=== PATIENT | male | born 1965 | race Asian ===

== ENCOUNTER 2016-09-23 08:40 | Emergency (ER) | payer OTHER ==
[~2016-09-23] VITALS: Ht 177.8 cm; Wt 83.9 kg
--- NOTE | 2016-09-23 09:09 | Emergency Room Report ---
History of Present Illness General Chief Complaint: Multiple Trauma/Fall Source: Patient Present Illness HPI Patient is a 51-year-old male who presented after a fall. The patient reported fell down 4 stairs he denied loss of consciousness. He reports having a moderate headache. He sustained injuries to his for head as well as to his lower lip and left wrist and left knee. He denied any neck pain or stiffness. He denied any low back pain or chest pain. The patient said he fell forward. He denies taking anticoagulants. Allergies: Coded Allergies: NSAIDS (NON-STEROIDAL ANTI-INFLAMMA (Verified Allergy, Unknown, 09/23/16) Uncoded Allergies: NSAIDS (Allergy, Unknown, 09/23/16) Patient History Past Medical History: see triage record Reviewed Nursing Documentation: PMH: Agreed, PSxH: Agreed Nursing Documentation-PMH Past Medical History: No Stated History Review of Systems All Other Systems: negative except mentioned in HPI Physical Exam Vital Signs Date Time Temp Pulse Resp B/P Pulse Ox O2 Delivery O2 Flow Rate FiO2 09/23/16 08:50 98.2 97 18 148/107 95 Room Air Sp02 EP Interpretation: reviewed, normal General Appearance: normal inspection, well appearing, no apparent distress, alert, GCS 15 Head: atraumatic ENT: normal ENT inspection, hearing grossly normal, normal voice, other - lip laceration less than 1 cm superficial Neck: normal inspection, full range of motion, supple, no bony tend Respiratory: normal inspection, lungs clear, normal breath sounds, no respiratory distress, no retraction, no wheezing Cardiovascular #1: regular rate, rhythm, no edema Gastrointestinal: normal inspection, normal bowel sounds, non tender, soft, no guarding, no hernia Genitourinary: no CVA tenderness Musculoskeletal: normal inspection, back normal, normal range of motion, other - left wrist swelling Neurologic: normal inspection, alert, oriented x3, responsive, 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 Because of complexity of patient's case imaging studies were ordered.The patient had no syncopal episode and this appears to have been a slip and fall. CT imaging of the head per radiology showed no evidence of bony fracture with no evidence of acute intracranial hemorrhage. The x-ray imaging of the left wrist 3 view and 3-view left knee interpreted by me showed normal bony alignment without evident fracture. The patient does not appear to have any evidence of neck injury requiring x-ray imaging and is negative Nexxus criteria.The patient was advised followup with employee health. The patient was taken off work for the next 3 days. Patient is advised to return if any worsening condition or if any changes in status that are concerning. Last Vital Signs Date Time Temp Pulse Resp B/P Pulse Ox O2 Delivery O2 Flow Rate FiO2 09/23/16 08:50 98.2 97 18 148/107 95 Room Air Status: improved Disposition: HOME, SELF-CARE Condition: Stable Scripts Acetaminophen (Tylenol) 325 Mg Tablet 650 MG ORAL Q6H Y for Prn Pain/Headache/Temp > 101, #30 TAB 0 Refills Prov: Ryan Gonzalez 09/23/16 Ryan Gonzalez Sep 23, 2016 09:09
[2016-09-23] MEDS ORDERED: TdaP Vaccine 0.5ml Syr IM ONE (09:15)
[2016-09-23 09:42] VITALS: BP 142/96
[2016-09-23] MEDS ORDERED: TYLENOL325 MG ORAL (09:49)
[2016-09-23 10:06] VITALS: BP 142/96
--- NOTE | 2016-09-23 10:16 | Diagnostic Imaging Report ---
Indications: Fall, head trauma, pain Technique: Continuous helical CT imaging of the brain was performed with automatic exposure control on a Siemens sensation [address] scanner. Axial and coronal images were reconstructed at 5 mm slice thickness and interval. CTDI volume(s): 70 mGy Total DLP: 1438 mGy-cm Findings: Comparison: None. Subcentimeter circumscribed low-attenuation focus right frontal deep white matter (3-13, 5-11). No evidence of mass or hemorrhage, other attenuation abnormality, mass effect, midline shift, hydrocephalus or increased intracranial pressure. Bone window images are unremarkable. Visualized paranasal sinuses and mastoid air cells are clear. IMPRESSION: No evidence of acute injury Nonspecific low-attenuation focus right frontal deep white matter, acuity indeterminate. If clinically indicated, indicated, consider MRI for further evaluation. The CT scanner at [facility] is accredited by the [employer] and the scans are performed using protocols designed to limit radiation exposure to as low as reasonably achievable to attain images of sufficient resolution adequate for diagnostic evaluation.
--- NOTE | 2016-09-23 10:42 | Diagnostic Imaging Report ---
Indications: Fall, left knee injury and pain Technique: 3 views left knee. Findings: Comparison: None No fracture, dislocation, joint space widening or effusion , surrounding soft tissue swelling/foreign body/gas, or other acute changes are identified. Small osteophytes at the margins of patellofemoral and knee joint spaces without significant narrowing. IMPRESSION: No evidence of acute injury. Mild osteoarthritis
--- NOTE | 2016-09-23 12:07 | Diagnostic Imaging Report ---
Indications: Fall, left wrist injury and pain Technique: 3 views left wrist. Findings: Comparison: None No fracture, dislocation, joint space widening , surrounding soft tissue swelling/foreign body/gas, or other acute changes are identified. Reversal of the normal volar tilt of distal radial articular surface on lateral view. IMPRESSION: No evidence of acute injury. Questionable old, healed distal radial fracture. Correlate historically.
== END 2016-09-23 10:09 | disposition home or self-care (01) ==
LOC: EMR 09:07 → EEVIPCON 09:07 → EMR 10:09
DX: S00.81XA Abrasion of other part of head, initial encounter (principal); S01.511A Laceration without foreign body of lip, initial encounter; S60.212A Contusion of left wrist, initial encounter; S80.00XA Contusion of unspecified knee, initial encounter; W10.9XXA Fall (on) (from) unspecified stairs and steps, initial encounter; Y93.9 Activity, unspecified; Y92.9 Unspecified place or not applicable; Z88.6 Allergy status to analgesic agent; Z23 Encounter for immunization
CPT/HCPCS: 70450; 90471; 90715; 99284

== ENCOUNTER 2017-12-16 18:16 | Emergency (ER) | payer BC, OTHER ==
[~2017-12-16] VITALS: Ht 177.8 cm; Wt 86.2 kg
[~2017-12-16 18:16] MED LIST: TYLENOL325 MG ORAL
[2017-12-16] MEDS ORDERED: METOPROLOL TART50 M1 ORAL (18:26)
[2017-12-16 18:34] VITALS: BP 163/104
[2017-12-16] MEDS ORDERED: Sodium Chloride 500ML 500 ML IV ONE (18:43)
[2017-12-16] MEDS ORDERED: DiphenhydrAMINE 50mg/ml Inj IVP ONE (18:45)
[2017-12-16] MEDS ORDERED: Metoclopramide 10mg/2ml Inj IVP ONE (18:45)
[2017-12-16 19:29] VITALS: BP 154/99
[2017-12-16 19:35] LABS: BASOPHILS % (AUTO) 2.6 % (0.0-2.0); EOSINOPHILS % (AUTO) 1.1 % (0.0-3.0); HEMATOCRIT 47.5 % (42.0-52.0); LYMPHOCYTES % (AUTO) 28.5 % (20.0-45.0); MEAN CORPUSCULAR VOLUME 93 FL (80-99); NEUTROPHILS % (AUTO) 57.8 % (45.0-75.0); PLATELET COUNT 228 K/UL (150-450); RED BLOOD COUNT 5.08 M/UL (4.70-6.10); RED CELL DISTRIBUTION WIDTH 12.2 % (11.6-14.8); WHITE BLOOD COUNT 5.5 K/UL (4.8-10.8)
[2017-12-16 19:55] LABS: ANION GAP 8 mmol/L (5-15); BLOOD UREA NITROGEN 15 mg/dL (7-18); CALCIUM 8.6 MG/DL (8.5-10.1); CARBON DIOXIDE 27 MMOL/L (21-32); CHLORIDE 105 MMOL/L (98-107); CREATININE 1.2 MG/DL (0.55-1.30); POTASSIUM 3.7 MMOL/L (3.5-5.1); SODIUM 140 MMOL/L (136-145)
[2017-12-16 20:08] LABS: ALANINE AMINOTRANSFERASE 171 U/L (12-78); ALBUMIN 3.9 G/DL (3.4-5.0); ALBUMIN/GLOBULIN RATIO 1.1 (1.0-2.7); ALKALINE PHOSPHATASE 77 U/L (46-116); ASPARTATE AMINO TRANSFERASE 73 U/L (15-37); BILIRUBIN,TOTAL 0.6 MG/DL (0.2-1.0); CKMB 0.7 NG/ML (0.0-3.6); CREATINE KINASE 131 U/L (26-308)
[2017-12-16 21:00] VITALS: BP 154/99
--- NOTE | 2017-12-16 21:23 | Emergency Room Report ---
History of Present Illness General Chief Complaint: Hypertension Source: Patient Present Illness HPI 52-year-old male presents to ED for evaluation. States that today he developed a headache. Throbbing, 7 out of 10, nonradiating. Notes nausea, denies vomiting. Denies neck stiffness. States his heart was racing as well. Denies chest pain. Notes history of hypertension and takes blood pressure meds. States he is compliant with his medications. Denies smoking or drug use. No other aggravating relieving factors. Denies any other associated symptoms Allergies: Coded Allergies: NSAIDS (NON-STEROIDAL ANTI-INFLAMMA (Verified Allergy, Unknown, 09/23/16) Uncoded Allergies: NSAIDS (Allergy, Unknown, 09/23/16) Patient History Past Medical History: HTN Past Surgical History: none Pertinent Family History: none Social History: Denies: smoking, alcohol use, drug use Immunizations: UTD Reviewed Nursing Documentation: PMH: Agreed; PSxH: Agreed Nursing Documentation-PMH Hx Hypertension: Yes Review of Systems All Other Systems: negative except mentioned in HPI Physical Exam Vital Signs Date Time Temp Pulse Resp B/P (MAP) Pulse Ox O2 Delivery O2 Flow Rate FiO2 12/16/17 18:24 98.2 121 21 150/100 98 Room Air 98.2 Sp02 EP Interpretation: reviewed, normal General Appearance: no apparent distress, alert, GCS 15, non-toxic Head: normocephalic, atraumatic Eyes: bilateral eye normal inspection, bilateral eye PERRL ENT: hearing grossly normal, normal pharynx, no angioedema, normal voice Neck: full range of motion, supple/symm/no masses Respiratory: chest non-tender, lungs clear, normal breath sounds, speaking full sentences Cardiovascular #1: regular rate, rhythm, no edema Cardiovascular #2: 2+ carotid (R), 2+ carotid (L), 2+ radial (R), 2+ radial (L) , 2+ dorsalis pedis (R), 2+ dorsalis pedis (L) Gastrointestinal: normal bowel sounds, non tender, soft, non-distended, no guarding, no rebound Rectal: deferred Genitourinary: normal inspection, no CVA tenderness Musculoskeletal: back normal, gait/station normal, normal range of motion, non- tender Neurologic: alert, oriented x3, responsive, motor strength/tone normal, sensory intact, speech normal Psychiatric: judgement/insight normal, memory normal, mood/affect normal, no suicidal/homicidal ideation Reflexes: 3+ bicep (R), 3+ bicep (L), 3+ tricep (R), 3+ tricep (L), 3+ knee (R) , 3+ knee (L) Skin: normal color, no rash, warm/dry, well hydrated Lymphatic: no adenopathy Medical Decision Making Diagnostic Impression: Primary Impression: Headache Qualified Codes: R51 - Headache Additional Impression: Palpitations ER Course Hospital Course 52-year-old M presents ED complaining of palpitations, headache Differential diagnoses include: afib, Vtach, SVT, hypertension, CVA Clinical course Patient placed on stretcher. After initial history and physical I ordered labs , EKG, chest x-ray, IVFs, CT head, meds. labs reviewed- all electrolytes normal, troponins negative, no leukocytosis, hemoglobin/hematocrit stable EKG - NSR, no acute ischemic changes interpreted by me Chest x-ray-no cardiomegaly, no rib fracture, no pneumothorax, no acute process CT Head - no acute process On reassessment patient feels better. Discussed findings with patient. Patient is safe for discharge recommend close follow-up with PMD I. I feel this is a highly complex case requiring extensive working including EKG/Rhythm strip, Xray/CT/US, Blood/urine lab work, repeat exams while in ED, and administration of strong opiates/narcotics for pain control, admission to hospital or close patient follow up. Diagnosis - palpitations, headache Stable and discharged to home. Instructed to followup with PMD. Return to ED if symptoms recur or worsen Labs Test 12/16/17 19:00 White Blood Count 5.5 K/UL (4.8-10.8) Red Blood Count 5.08 M/UL (4.70-6.10) Hemoglobin 16.0 G/DL (14.2-18.0) Hematocrit 47.5 % (42.0-52.0) Mean Corpuscular Volume 93 FL (80-99) Mean Corpuscular Hemoglobin 31.5 PG (27.0-31.0) Mean Corpuscular Hemoglobin Concent 33.8 G/DL (32.0-36.0) Red Cell Distribution Width 12.2 % (11.6-14.8) Platelet Count 228 K/UL (150-450) Mean Platelet Volume 8.3 FL (6.5-10.1) Neutrophils (%) (Auto) 57.8 % (45.0-75.0) Lymphocytes (%) (Auto) 28.5 % (20.0-45.0) Monocytes (%) (Auto) 10.0 % (1.0-10.0) Eosinophils (%) (Auto) 1.1 % (0.0-3.0) Basophils (%) (Auto) 2.6 % (0.0-2.0) Sodium Level 140 MMOL/L (136-145) Potassium Level 3.7 MMOL/L (3.5-5.1) Chloride Level 105 MMOL/L (98-107) Carbon Dioxide Level 27 MMOL/L (21-32) Anion Gap 8 mmol/L (5-15) Blood Urea Nitrogen 15 mg/dL (7-18) Creatinine 1.2 MG/DL (0.55-1.30) Estimat Glomerular Filtration Rate > 60 mL/min (>60) Glucose Level 104 MG/DL (74-106) Calcium Level 8.6 MG/DL (8.5-10.1) Total Bilirubin 0.6 MG/DL (0.2-1.0) Aspartate Amino Transf (AST/SGOT) 73 U/L (15-37) Alanine Aminotransferase (ALT/SGPT) 171 U/L (12-78) Alkaline Phosphatase 77 U/L (46-116) Total Creatine Kinase 131 U/L (26-308) Creatine Kinase MB 0.7 NG/ML (0.0-3.6) Creatine Kinase MB Relative Index 0.5 Troponin I 0.000 ng/mL (0.000-0.056) Total Protein 7.3 G/DL (6.4-8.2) Albumin 3.9 G/DL (3.4-5.0) Globulin 3.4 g/dL Albumin/Globulin Ratio 1.1 (1.0-2.7) EKG Diagnostic Results Rate: normal Rhythm: NSR ST Segments: no acute changes ASA given to the pt in ED: No Rhythm Strip Diag. Results EP Interpretation: yes Rhythm: NSR, no PVC's, no ectopy Chest X-Ray Diagnostic Results Chest X-Ray Diagnostic Results : Chest X-Ray Ordered: Yes # of Views/Limited/Complete: 1 View Indication: Chest Pain EP Interpretation: Yes Interpretation: no consolidation, no effusion, no pneumothorax, no acute cardiopulmonary disease Impression: No acute disease Electronically Signed by: Electronically signed by Marco Fry MD CT/MRI/US Diagnostic Results CT/MRI/US Diagnostic Results : Imaging Test Ordered: CT head Impression no acute process Last Vital Signs Date Time Temp Pulse Resp B/P (MAP) Pulse Ox O2 Delivery O2 Flow Rate FiO2 12/16/17 19:29 98.2 96 27 154/99 99 Room Air 98.2 Status: improved Disposition: HOME, SELF-CARE Condition: Stable Departure Forms: Return to Work Return to Work Date: Dec 19, 2017 Work Restrictions: None Patient Instructions: Hypertension, [id number] Marco Fry MD Dec 16, 2017 21:22
--- NOTE | 2017-12-17 08:34 | Diagnostic Imaging Report ---
Indications: Headache Technique: Spiral acquisitions obtained through the brain. Angled axial and coronal 5 x 5 mm slices were reconstructed. Total dose length product 1404.22 mGycm. CTDI vol(s) 70.38 mGy. Dose reduction achieved using automated exposure control Comparison: None. Findings: Focus of low-attenuation in the right inferior frontal deep white matter probably represents an old deep white matter infarct. Other scattered foci of deep white matter low attenuation probably reflect chronic ischemic changes. Normal size ventricles, mildly prominent extra-axial CSF spaces. No acute intracranial hemorrhage or edema. No mass effect nor midline shift. Intact calvarium. Visualized orbits and sinuses are unremarkable. Impression: Negative for acute intracranial bleed or mass effect. Mild age-related cortical volume loss Right frontal white matter infarct and mild periventricular deep white matter chronic ischemic changes This agrees with the preliminary interpretation provided overnight by [facility] teleradiology service. The CT scanner at [facility] is accredited by the [employer] and the scans are performed using protocols designed to limit radiation exposure to as low as reasonably achievable to attain images of sufficient resolution adequate for diagnostic evaluation.
--- NOTE | 2017-12-17 09:58 | Diagnostic Imaging Report ---
Indication: Chest pain Technique: One view of the chest Comparison: none Findings: No acute infiltrates, effusions, or congestion. Tortuous calcified aorta. Normal heart size. Upper mediastinum unremarkable. Impression: No acute process.
== END 2017-12-16 21:00 | disposition home or self-care (01) ==
LOC: EMR 19:20 → EEVIPCON 19:20 → EMR 21:00
DX: R51 Headache (principal); R00.2 Palpitations; I10 Essential (primary) hypertension; Z88.6 Allergy status to analgesic agent
CPT/HCPCS: 36415; 70450; 71045; 80053; 82550; 82553; 84484; 85025; 93005; 96374; 96375; 99284; J1200; J2765; J7040; 96360